=== PATIENT | female | born 1940 | race African-American/Black ===

== ENCOUNTER 2022-12-10 16:01 | Emergency (ER) | payer MEDICARE ==
[~2022-12-10] VITALS: Ht 167.6 cm; Wt 86.0 kg
[2022-12-10 16:06] VITALS: O2SAT 98
[2022-12-10 16:40] LABS: BASOPHILS % 0.3 % (0.0-2.0); EOSINOPHILS % 0.5 % (0.0-5.0); HEMATOCRIT. 41.3 % (36.0-48.0); HEMOGLOBIN. 13.3 g/dL (12.0-16.0); LYMPHOCYTES % 44.3 % (20.0-50.0); MEAN CORPUSCULAR HEMOGLOBIN 29.2 pg (28.0-32.0); MEAN CORPUSCULAR HGB CONC 32.2 g/dL (31.0-37.0); MEAN CORPUSCULAR VOLUME 90.8 fL (81.0-99.0); MEAN PLATELET VOLUME 9.1 fl (7.4-10.4); MONOCYTES % 6.7 % (2.0-8.0); NEUTROPHILS % 48.2 % (40.0-76.0); PLATELET 167 x1000/uL (130-400); RED BLOOD CELL COUNT 4.54 mill/uL (4.2-5.4); RED CELL DISTRIBUTION WIDTH 13.8 % (11.6-14.6)
[2022-12-10 16:51] LABS: CHLORIDE 109 mEq/L (98-107); INDEX HEMOLYSI 1 (1-3); INDEX ICTERIC 1 (1-4); INDEX LIPEMIC 1 (1-3); POTASSIUM 3.7 mEq/L (3.5-5.1); SODIUM 141 mEq/L (136-145)
[2022-12-10 17:07] LABS: ALANINE AMINOTRANSFERASE 14 IU/L (13-61); ALBUMIN 3.7 g/dL (3.4-5.0); ASPARTATE AMINOTRANSFERASE 13 IU/L (15-37); BILIRUBIN TOTAL 1.1 mg/dL (0.1-1.0); CARBON DIOXIDE 24 mEq/L (21-32); CREATININE 1.2 mg/dL (0.6-1.3); GLUCOSE 139 mg/dL (70-105); PROTEIN TOTAL 7.9 g/dL (6.0-8.3); TROPONIN I HIGH SENSITIVITY 31 ng/L (<54); UREA NITROGEN BLOOD 24 mg/dL (7-21)
[2022-12-10 17:08] LABS: NT PRO B-TYPE NATRIURETIC PEP 1682 pg/mL (5-125)
[2022-12-10] MEDS ORDERED: FURO20TA4 MT (19:02)
[2022-12-10] MEDS ORDERED: POTA-205 MT (19:02)
[2022-12-10 19:20] LABS: TROPONIN I HIGH SENSITIVITY 32 ng/L (<54)
[2022-12-10 19:31] VITALS: BP 155/78; PULSE 84; RESP 18; TEMP 98.6
== END 2022-12-10 19:36 | disposition home or self-care (01) ==
LOC: ER 16:01
DX: R55 Syncope and collapse (principal); I48.91 Unspecified atrial fibrillation; I11.0 Hypertensive heart disease with heart failure; I50.9 Heart failure, unspecified; F03.90 Unspecified dementia, unspecified severity, without behavioral disturbance, psychotic disturbance, mood disturbance, and anxiety
CPT/HCPCS: 36415; 71045; 80053; 83880; 84484; 85025; 93005; 99285